=== PATIENT | male | born 1965 | race American Indian/Alaskan Native ===

== ENCOUNTER 2017-12-05 06:55 | Day surgery (SDC) | payer OTHER ==
[~2017-12-05] VITALS: Ht 177.8 cm; Wt 117.9 kg
[~2017-12-05 06:55] MED LIST: ALLEGRA180 MG PO; ASPIRIN EC81 MG PO; GLIPIZIDE5 MG PO; LISINOPRIL2.5 MG PO; LOFIBRA160 MG PO; LORATADINE10 MG PO; METFORMIN HYDRO25 GM MISC; SIMVASTATIN40 MG PO; SINGULAIR10 MG PO
[2017-12-05] MEDS ORDERED: HYDROCODON-ACE1 EA11 PO (09:42)
[2017-12-05] MEDS ORDERED: DICLOFENAC SODI75 MG PO (09:44)
--- NOTE | 2017-12-05 09:44 | NUR ---
12/05/17 0944 Julian Trinidad CBG 272 MG/DL. 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
--- NOTE | 2017-12-05 10:48 | NUR ---
LE 1022: PT ARRIVED FROM PACU, TALKING WITH RN. VITALS AND ASSESSMENT COMPLETED. PT RATES PAIN 5/10, STATES PAIN IS TOLERABLE. PT APPEARS DROWSY, FAMILY IN ROOM STATES PT IS "LOOPY." PUDDING, CRACKERS AND WATER GIVEN. NO FURTHER NEEDS AT THIS TIME. CALL LIGHT IN REACH
--- NOTE | 2017-12-05 11:03 | NUR ---
PT RESTING IN BED, ALERT AND ORIENTED. 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 REALLY HOPES THIS WILL GIVE HIM SOME RELIEF. EXTENDED BLESSING, WILL FOLLOW NEEDED
--- NOTE | 2017-12-05 11:26 | OR ---
[facility] [address], [place] [address] Signed DATE OF OPERATION: 12/05/2017 SURGEON: Jason Bates MD PREOPERATIVE DIAGNOSIS: Medial meniscus tear, left knee. POSTOPERATIVE DIAGNOSIS: Medial meniscus tear, left knee. PROCEDURE PERFORMED: Left knee arthroscopy with partial medial meniscectomy. ANESTHESIA: General. STITCHER UTILITY: ELAINE Peters. Cristal was present for the entire procedure, was critical positioning him, holding and wound closure. BLOOD LOSS: 50 mL. BRIEF HISTORY: Sima is a 52-year-old gentleman with pain in his knee. He had locking and giving out. MRI was consistent with mild osteoarthritis and medial meniscus tear. Risks, benefits, and alternatives were discussed at length. He understands and wished to proceed. DESCRIPTION OF PROCEDURE: Once consent was obtained, he was taken to the operating room. After adequate anesthesia, he was placed on the operating table. All downside pressure points were well padded. Right leg was flexed, abducted, external rotated in well leg manzo. The left was placed in proximal thigh tourniquet, placed in leg manzo. Portal sites utilizing prior incisions were injected with 0.25% Marcaine and epinephrine. The leg was then prepped and draped in a standard sterile fashion. The prior incisions were incised and the scope was placed in the knee. Arthroscopic findings, moderate synovitis was noted throughout the knee. Grade 1 chondromalacia to the patellofemoral joint. Medial and lateral gutters were clear. ACL and PCL were intact. The lateral compartment was intact with no loose bodies. Medial compartment showed a primarily radial tear in the posterior aspect of the meniscus. There was grade 3 chondromalacia Electronically Signed By: JASON BATES MD 12/05/17 1126 PATIENT NAME: SIMA AYALA JR OPERATIVE REPORT DATE OF : 61 REPORT #: [id number] PHYSICIAN: JASON BATES MD PCP: CARLEEN ROSA MD REPORT IS CONFIDENTIAL AND NOT TO BE RELEASED WITHOUT AUTHORIZATION [facility] [address], [place] [address] Signed to the femur and grade 2 to the tibia. The straight biter was used to trim the meniscus tear back to a stable rim and feathered out. This was then smoothed using a shaver and all debris was evacuated. The scope was withdrawn. Portals were closed with 3-0 nylon. Dressed with Adaptic, ABD, and Yevgeniy wrap. He tolerated the procedure well. All sponge, needle, and instrument counts were correct. Jason Bates MD BA/KILO /[id number] Copies: ~ Electronically Signed By: JASON BATES MD 12/05/17 1126 PATIENT NAME: SIMA AYALA JR OPERATIVE REPORT DATE OF : 61 REPORT #: [id number] PHYSICIAN: JASON BATES MD PCP: CARLEEN ROSA MD REPORT IS CONFIDENTIAL AND NOT TO BE RELEASED WITHOUT AUTHORIZATION
--- NOTE | 2017-12-05 13:56 | NUR ---
LE 1110:IN TO CHECK ON PT, MORE WATER GIVEN. TERESSA REQUESTED AND ORDERED. PAIN MEDICATION GIVEN FOR A 7/10 BURNING PAIN ON THE LATERAL ASPECT OF THE L KNEE. FAMILY IN ROOM, CALL LIGHT IN REACH. LE 1120: PT UP TO RESTROOM WITH ASSIST FROM RN AND . PT SHOWS SIGNS OF DISCOMFORT BUT TOLERATES WELL. PT ABLE TO URINATE. PT ADVISED THAT IF PAIN IS CONTROLED AND HE REMAINS WITHOUT NAUSEA HE MAY GO HOME. PT UNDERSTANDS. NO FURTHER NEEDS AT THIS TIME. FAMILY AT BEDSIDE, CALL LIGHT IN REACH. LE 1230: IN TO CHECK ON PT, HE STATES HIS PAIN IS BETTER. DENIES NAUSEA WITH MEAL. PT STATES HE IS READY FOR DISCHARGE. IV DC'D. PT'S TO HELP PT DRESS. ADVISED PT TO MOVE SLOWLY AND CALL FOR HELP IF NEEDED.
== END 2017-12-05 13:10 | disposition home or self-care (01) ==
LOC: DS 06:55
PROVIDERS: Specialist
PROC: 0SBD4ZZ Excision of Left Knee Joint, Percutaneous Endoscopic Approach (ICD-10-PCS; principal; 2017-12-05 08:45)
DX: S83.242A Other tear of medial meniscus, current injury, left knee, initial encounter (principal); M65.862 Other synovitis and tenosynovitis, left lower leg; M22.42 Chondromalacia patellae, left knee; E78.00 Pure hypercholesterolemia, unspecified; E11.9 Type 2 diabetes mellitus without complications; M76.52 Patellar tendinitis, left knee; Z79.899 Other long term (current) drug therapy; Z88.0 Allergy status to penicillin; Z98.890 Other specified postprocedural states; Z79.82 Long term (current) use of aspirin; Z79.84 Long term (current) use of oral hypoglycemic drugs
CPT/HCPCS: 01400; J0330; J0690; J1885; J2250; J2704; J3010; J7120

== ENCOUNTER 2019-07-06 17:51 | Emergency (ER) | payer OTHER, BC ==
[~2019-07-06] VITALS: Ht 177.8 cm; Wt 119.7 kg
--- OUTSIDE RECORDS SUMMARY | ~2019-07-06 | XMS | Clinical Summary ---
Demographics + + + | Address | [address] | | | [place] [address] | + + + | Home Phone | | + + + | Preferred Language | Unknown | + + + | Marital Status | Single | + + + | Yazidism Affiliation | Unknown | + + + | Race | Unknown | + + + | Ethnic Group | Unknown | + + + Author + + + | Author | [facility] | | | and Cesar | + + + | Organization | [facility] | | | and [place] | + + + | Address | Unknown | + + + | Phone | Unavailable | + + + Care Team Providers + +------+ + | Care Technical Coordinator Name | Role | Phone | + +------+ + PCP | Unavailable | + +------+ + Allergies Not on File Medications Not on file Active Problems Not on file Social History + +-------+ +--------+------+ | Tobacco Use | Types | Packs/Day | Years | Date | | | | | Used | | + +-------+ +--------+------+ | Never Assessed | | | | | + +-------+ +--------+------+ + + + | Sex Assigned at | Date Recorded | | | | + + + | Not on file | | + + + + + + + | Job Start Date | Occupation | Industry | + + + + | Not on file | Not on file | Not on file | + + + + + + + + | Travel History | Travel Start | Travel End | + + + + + + | No recent travel history available. | + + Last Filed Vital Signs Not on file Plan of Treatment + + + + + | Health Maintenance | Due Date | Last Done | Comments | + + + + + | Vaccine: | | | | | Dtap/Tdap/Td (1 - | 3 | | | | Tdap) | | | | + + + + + | Vaccine: Zoster (1 | | | | | of 2) | 4 | | | + + + + + | Vaccine: Influenza | | | | | (#1) | 9 | | | + + + + + Results Not on filefrom Last 3 Months Insurance + +--------+ +--------+ +---------+--------+ | Payer | Benefi | Subscriber | Effect | Phone | Address | Type | | | t Plan | ID | jay jay | | | | | | / | | Dates | | | | | | Group | | | | | | + +--------+ +--------+ +---------+--------+ | [facility] | PHP | [id number] | 09/26/19 | [phone] | | PPO | | PLAN | PERSON | | 18-Pre | 5 | | | | | AL | | sent | | | | | | OPEN | | | | | | | | OPTION | | | | | | + +--------+ +--------+ +---------+--------+ | [facility] | IHS | [id number] | | | | Indemn | | SERVICE | YELLOW | | 018-Pr | | | ity | | | HAWK | | esent | | | | + +--------+ +--------+ +---------+--------+ + +--------+ +--------+ + + | Guarantor Name | Accoun | Relation to | Date | Phone | Billing Address | | | t Type | Patient | of | | | | | | | | | | + +--------+ +--------+ + + | Shola Galvan | Person | Self [birth year] | [address] | | | al/Fam | | 1966 | [phone] | [place] [address] | | | kimo | | | 3 (Home) | | + +--------+ +--------+ + +"
--- OUTSIDE RECORDS SUMMARY | ~2019-07-06 | XMS | Clinical Summary ---
Demographics + + + | Address | [address] | | | [place] [address] | + + + | Home Phone | | + + + | Preferred Language | Unknown | + + + | Marital Status | Single | + + + | Scientologist Affiliation | Unknown | + + + | Race | Unknown | + + + | Ethnic Group | Unknown | + + + Author + + + | Author | [facility] | | | and Cesar | + + + | Organization | [facility] | | | and [place] | + + + | Address | Unknown | + + + | Phone | Unavailable | + + + Care Team Providers + +------+ + | Care Reed Dipper Name | Role | Phone | + [...] +---------+--------+ | [facility] | PHP | [id number] | 09/26/19 | [phone] | | PPO | | PLAN | PERSON | | 18-Pre | 5 | | | | | AL | | sent | | | | | | OPEN | | | | | | | | OPTION | | | | | | + +--------+ +--------+ +---------+--------+ | [facility] | IHS | [id number] | | | | Indemn | | [...] | 1966 | [phone] | [place] [address] | | | kimo | | | 3 (Home) | | + +--------+ +--------+ + +"
[~2019-07-06 17:51] MED LIST changes: +DICLOFENAC SODI75 MG PO; +HYDROCODON-ACE1 EA11 PO; +METFORMIN HCL1000 M1 PO; +ULTRAM50 MG PO
--- OUTSIDE RECORDS SUMMARY | 2019-07-06 17:54 | XMS ---
PreManage Notification: SIMA AYALA Security Saw Man Events No recent Security Events currently on file CRITERIA MET - [facility] CARE PROVIDERS Fernando Bates Treatment Current PHONE: Unknown Dhaval has no Care Guidelines for this patient. ETawana VISIT COUNT (12 MO.) 1 ISAEL Souza TOTAL 1 NOTE: Visits indicate total known visits. ED/UCC VISIT TRACKING (12 MO.) 07/06/2019 17:52 ISAEL [facility] [place] TYPE: Emergency COMPLAINT: - BACK/SIDE PAIN INPATIENT VISIT TRACKING (12 MO.) No inpatient visits to display in this time frame [email or web address]
[2019-07-06] MEDS ORDERED: ROBAXIN-750750 MG PO (18:37)
[2019-10-23] MEDS ORDERED: MULTIVITAMIN W1 EACH PO (12:01)
[2019-10-23] MEDS ORDERED: SUDAFED 12 HOU120 MG PO (12:01)
[2019-10-23] MEDS ORDERED: VITAMIN B-12100 MCG PO (12:02)
[2019-10-23] MEDS ORDERED: VITAMIN D35000 UNI2 PO (12:03)
== END 2019-07-06 18:42 | disposition home or self-care (01) ==
LOC: ED 17:51
DX: M54.5 Low back pain (principal); I10 Essential (primary) hypertension; E11.9 Type 2 diabetes mellitus without complications; Z88.0 Allergy status to penicillin; Z79.899 Other long term (current) drug therapy; Z79.82 Long term (current) use of aspirin
CPT/HCPCS: 99283; A9270

== ENCOUNTER 2021-07-04 21:58 | Inpatient (IN) | payer OTHER ==
[~2021-07-04] VITALS: Ht 177.8 cm; Wt 114.3 kg
[~2021-07-04 21:58] MED LIST changes: +ASPIRIN EC325 MG PO; +CELECOXIB200 MG PO; +CRESTOR40 MG NG; +FENOFIBRATE160 MG PO; +GABAPENTIN600 MG PO; -GLIPIZIDE5 MG PO; +GLUCOTROL XL10 MG PO; +JANUMET 50-1,01 EACH PO; -LOFIBRA160 MG PO; +MULTIVITAMIN W1 EACH PO; +OXYCODONE HCL5 MG PO; +PIOGLITAZONE HC30 MG PO; +ROBAXIN-750750 MG PO; +SENNA LAX8.6 MG PO; +SUDOGEST60 MG PO; +TAMSULOSIN HCL0.4 MG PO; +VITAMIN B-121000 MCG PO; +VITAMIN D3125 MC1 PO
--- OUTSIDE RECORDS SUMMARY | 2021-07-04 22:00 | XMS ---
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 Care History Medical/Surgical 07/09/2019 [facility] \T\middot;\T\nbsp; PATIENT- [facility] ELIGIBLE \T\middot;\T\nbsp; PLEASE REFER PATIENT TO [facility] FOR NON EMERGENT MEDICAL NEEDS. \T\middot;\ T\nbsp; [facility] CAN SEE PATIENTS SAME DAY FOR APTS IF PATIENT CALLS FIRST THING IN THE MORNING. E.D. VISIT COUNT (12 MO.) [address] [place] [address] TOTAL 1 NOTE: Visits indicate total known visits. ED/UCC VISIT TRACKING (12 MO.) 07/04/2021 21:59 ISA[facility] Stephens [place] TYPE: Emergency COMPLAINT: - ABD PAIN INPATIENT VISIT TRACKING (12 MO.) No inpatient visits to display in this time frame [email or web address]
--- NOTE | 2021-07-05 02:32 | NUR ---
0130 - pt arrived from ed via stretcher, NGT in place. acompanied by . 0230 - admit assessment completed, awake off and on, answers appropriately NGT L nare to LIWS, draining thick brown colored drainage. lungs clear bilat, on room air. abd w slight distention upper abd, tender, rare bowel tones, stated LBM 10/09, aware of NPO status, oral sponges and swabs at bedside, cooperative. pt does own oral care. IVF bolus from ED completed, and new IVF started as per orders oriented ro hosp routines and room, warm blanket to legs. stated legs get cold easily, maybe undiagnosed neuropathy" as per . Pt has indwewlling BS reader, no accuchecks ordered at this time. pt and aware wifes questions and concerns answered to her satisfaction.
--- NOTE | 2021-07-05 05:02 | NUR ---
Pt admitted early this am from ED. alert and oriented. L nare NGT patent to LIWS, draining thick, brown colored discharge. njo XR was obtained for placement as per ED RN. pt hob elevated, on room air. pt is diabetic and has indwelling BS meter. no BS orders at this time. abd w slight distention, tender, pt says is normal LBM 07/04/21. trace edema generalized, "normal" as per pts . pt voided in [facility] to [facility], no void yet, uses urinal, has slept since admission, no c/o pain at this time. pt has chonic pain. NPO, does own oral care. IVF infusing w/o problems. call light at hands reach
--- NOTE | 2021-07-05 06:19 | NUR ---
VS, DONE. PT STOOD AT BEDSIDE TO USE URINAL. PT BACK IN BED, CALL LIGHT WITHIN REACH. NO FURTHER ASSISTNACE NEEDED AT THIS TIME.
--- NOTE | 2021-07-05 06:55 | NUR ---
RESTING, ALERT, AWAKES EASILY, IVF INFUSING, NGT TO ILWS, DRAINING BROWN THICK DRAINAGE. HOB ELEVATED, DOES OWN MOUTH CARE, HAS VOIDED, NO C/O PAIN AT THIS TIME
--- NOTE | 2021-07-05 07:42 | NUR ---
Shift report recieved from RN Sola, pt resting in bed safely w/ call in reach and eyes closed, RR even and unlabored. NGT in L nare connected to low continuous wall suction.
--- NOTE | 2021-07-05 10:00 | NUR ---
PT RESTING IN BED W/ CALL LIGHT IN REACH, PT ON PHONE W/ , DENIES ANY PAIN, NAUSEA, OR NEEDS AT THIS TIME. IV FLUIDS INFUSING PER PROVIDERS ORDERS. MORNING ASSESMENT COMPLETE, NO SCHEDULED MEDS TO GIVE AT THIS TIME.
--- NOTE | 2021-07-05 12:00 | NUR ---
IV FLUIDS CHANGED FROM D51/2NS+20K TO LR PER PROVIDER ORDERS.
--- NOTE | 2021-07-05 14:00 | NUR ---
pt c/o L lavon and abd pain, IV PRN toradol given per pt request/ provider order. Pt denies any other needs at this time or nausea
--- NOTE | 2021-07-05 16:30 | NUR ---
pt c/o on continuing shoulder pain, IV PRN morphine given per request/order. pt denies any nausea or other needs at this time
--- NOTE | 2021-07-05 18:00 | NUR ---
NGT remains connected to int. wall suction, canister changed as it was full. pt denies pain or nausea.
--- NOTE | 2021-07-05 20:58 | NUR ---
Lnare NGT in place to medium intermitent wall suction, draining thin brown liquid. tolerating large amounts of clear liquids. no emeis. c/o shouldler pain, medicated with Toradol, c/o allergies and runny nose and cough, takes Sudafed/Claritin at home, will notify , . IVF infusing w/o problems. voiding QS, on room air, clear lungs, tender abd, IVAN bowel tones. at bedside.
--- NOTE | 2021-07-06 01:05 | NUR ---
HOB ELEVATED, TOLERATING LIQUIDS WELL, NO EMESIS, LNARE NGT PATENT, DRAINING DARK BROWN DRAINAGE. NO C/O PAIN, IVF INFUSING
--- NOTE | 2021-07-06 05:04 | NUR ---
MEDICATED WITH TORADOL PER C/O ABD PAIN. AWAKES EASILY, NGT PATENT. FLUSHED EASILY, COOPERATIVE.
--- NOTE | 2021-07-06 05:04 | NUR ---
PT HAS SLEPT THIS SHIFT, HOB ELEVATED L NARE NGT PATENT TO MEDIUM INTERMITENT WALL SUCTION, DRAINING DARK BROWN COLORED THICK DRAINAGE. oN CLEAR LIQUIDS, TOLERATING WELL, NO EMESIS. ABD TENDER, MEDICATED WITH TORADOL X2, EFFECTIVE. IVF INFUSING L HAND, W/O PROBLEMS. TURNS AND REPOSITIONS SELF IN BED, VOIDING QS. ALERT AND ORIENTED.
--- NOTE | 2021-07-06 06:01 | NUR ---
pt up to br, had a very large soft and liquid bm, back to bed, tolerated well, continues to c/o runny nosa, will notify am in am, pt has seasonal allergies and takes allergy meds at home
--- NOTE | 2021-07-06 07:27 | NUR ---
PT RESTING SOUNLDY AT TIME OF SHIFT EXCHANGE. AWAKENED FOR XRAY. DENIES NEEDS AT THIS TIME.
--- NOTE | 2021-07-06 07:42 | NUR ---
back from [facility].
--- NOTE | 2021-07-06 08:34 | NUR ---
PATIENT CALLED THAT HIS NG TUBE FELT "COILED" UPON EXAM WITH LIGHT, NO COILING NOTED BUT AUDIBLE SUCKING SOUND WHEN INTERMITTANT SUCTION STARTED. NG TUBE ADVANCED, UNABLE TO AUDIBLY HEAR AIR BOLUS DUE TO HYPERACTIVE BOWEL SOUND. PRIMARY NURSE SHAWN NOTIFIED.
--- NOTE | 2021-07-06 09:07 | NUR ---
SPOKE WITH PATIENT IN ROOM. IS UP IN CHAIR. NGT IN PLACE. PATIENT LIVES WITH LIFE PARTNER BREE. HE WORKS. HE DRIVES. IS INDEPENDENT. DENIES USING DME BUT THE DO HAVE A NEBULIZER AT HOME. DENIES FINACIAL STRAIN TO AFFORD MEDS/FOOD/UTILTIES. USES [facility] FOR PCP AND CHRONIC MEDS. USES [facility] FOR ACUTE RX. PLANS TO DISCHARGE HOME AND FAMILY CAN TRANSPORT. NO QUESTIONS AT THIS TIME.
--- NOTE | 2021-07-06 09:19 | NUR ---
ASSISTED PT TO CHAIR. PT IS COMPLAINING OF PAIN. VS DONE. PT ACCEPTED A LINEN CHANGE. CALL LIGHT WITHIN REACH, NO FURTHER NEEDS AT THIS TIME. PT'S IN ROOM.
--- NOTE | 2021-07-06 09:34 | NUR ---
PT IS UP TO THE CHAIR IS PRESENT IN THE ROOM. NG TUBE APPEARS TO BE PULLED PARTIALLY OUT, SUCTION TURNED OFF FOR NOW. PT REPORTS ALLERGY SYMPTOMS ARE BOTHERING HIM AND HE HAS BEEN SNEEZING, PERHAPS DISPLACED TUBE THAT WAY.
--- NOTE | 2021-07-06 09:40 | NUR ---
NOTIFIED DR BARROS OF DISLODGED NG TUBE WELL PT HAS PASSING OF BOTH LIQUID AND FORMED STOOL. HE REQUESTS NG TUBE BE DC'D FOR NOW. NG TUBE PULLED PT REPORTS RELIEF.
--- NOTE | 2021-07-06 12:00 | NUR ---
PT RESTING IN BED FROM BEING UP IN THE CHAIR MOST OF THE MORNING. HE C/O 5/10 CRAMPING ABDOMINAL PAIN THAT COMES AND GOES. TOO EARLY FOR TORDOL MORPHINE ADMINISTERED AFTER EDUCATION OF SIDE EFFECTS. PT ENCOURAGED TO AMBULATE SEVERAL LAPS AROUND THE MARTIN, HE AGREE HE WILL A LITTLE LATER. JANICE BRITO.
--- NOTE | 2021-07-06 12:42 | NUR ---
pt resting eyes closed appears relaxed and comfortable. left undisturbed
--- NOTE | 2021-07-06 13:45 | NUR ---
PT HAS BEEN CAUTIONED HE IS TO HAVE SIPS OF CLEARS ONLY PER DR BARROS. PT ALSO ENCOURAGED TO AMBULATE THE HALLS SEVERAL TIMES THIS SHIFT HE HAS NOT YET BEEN WILLING.
--- NOTE | 2021-07-06 13:54 | NUR ---
pt up ambulating the cox wiht his .
--- NOTE | 2021-07-06 14:30 | NUR ---
PT IN BED. IN ROOM. PT INSISTS THAT DR TOLD THEM THEY COULD GO BACK ON REGULAR FOOD. THIS JOB PUTTER UP AND TICKET PREPARER WENT AND VERIFIED WITH RN SHAWN. PT IS NOW ON A CLEAR LIQUIDS DIET. VS AND I&O'S DONE. ROOM TIDIED UP. CALL LIGHT WITHIN REACH. NO FURTHER NEEDS AT THIS TIME.
--- NOTE | 2021-07-06 14:35 | NUR ---
PT ALERT, ORIENTED, SITTING IN CHAIR VISITING WITH BREE HIS . PT FEELING BETTER SINCE NGT DC'D. PT WAITING TO VISIT WITH DR BARROS. PT ALSO MENTIONED THAT HE HIS PAIN WAS INCREASING AND WAS UNDER THE IMPRESSION HIS RN WAS CHECKING ON MEDS. GAVE MAGI, WILL FOLLOW WITH ALYSSIA ESCOBAR REGARDING MEDS FOR PT.
--- NOTE | 2021-07-06 14:42 | NUR ---
DR BARROS IN TO SEE PT, PLAN GOING FORWARD DISCUSSED. OKAY TO SL AND DC CPOX ADVANCE DIET TOLERATED. POSSIBLE DC TOMORROW.
--- NOTE | 2021-07-06 17:05 | NUR ---
pt has tolerated a large amount of clear liquids with no increased pain or nausea looks forward to regular meal this evening.
--- NOTE | 2021-07-06 17:59 | NUR ---
PT TOLERATES REGULAR DIET FOR EVENING MEAL NO C/O PAIN OR NAUSEA. RESTING EYES CLOSED AT THIS TIME REMAINS IN THE ROOM
--- NOTE | 2021-07-06 19:10 | NUR ---
REPORT RECEIVED FROM ALYSSIA ESCOBAR. pt RESTING IN BED AWAKE. DRY PRESS OPERATOR IN ROOM FOR VS. NO ADDITIONAL NEEDS.
--- NOTE | 2021-07-06 20:52 | NUR ---
pt RESTING IN BED AWAKE. COMPLAINS OF CHRONIC PAIN MOSTLY IN RIGHT SHOULDER, KNEES, HANDS AND SOME UPPER ABDOMINAL PAIN. PRN AND SCHEDULED MEDICATIONS ADMINISTERED FOR PAIN. SELF CHECK CBG 165, SS INSULIN ADMINISTERED. ASSESSMENT COMPLETE. BOWEL TONES ACTIVE X 4. ABD SOFT, NONTENDER WITH PALPATION. DIET SPRITE PROVIDED. pt DENIES ANY NAUSEA. CALL LIGHT IN REACH.
--- NOTE | 2021-07-06 22:06 | NUR ---
CALL LIGHT ANSWERED. pt COMPLAINS OF 5/10 PAIN IN RIGHT SHOULDER, KNEES, ABD. PRN PAIN MEDICATION ADMINISTERED. SF SNACK PROVIDED. CALL LIGHT IN REACH.
--- NOTE | 2021-07-07 00:45 | NUR ---
pt RESTING IN BED WITH EYES CLOSED. BREATHING EQUAL AND UNLABORED. LIGHTS OFF IN ROOM. CALL LIGHT IN REACH.
--- NOTE | 2021-07-07 03:07 | NUR ---
pt RESTING IN BED WITH EYES CLOSED. BREATHING UNLABORED, RR 16.
--- NOTE | 2021-07-07 06:16 | NUR ---
pt AWAKENS TO VOICE. COMPLAINS OF 6/10 RIGHT SHOULDER, KNEE, HAND PAIN. PRN PAIN MEDICATION ADMINISTERED. pt REFUSES TORADOL STATES "IT DOESN'T DO ANYTHING". ASSESSMENT COMPLETE. SEMI FORMED BM THIS AM. BOWEL TONES ACTIVE X 4, ABD SOFT, NON-TENDER WITH PALPATION. pt DENIES NAUSEA. CALL LIGHT IN REACH. BREAKFAST MENU PROVIDED.
--- NOTE | 2021-07-07 07:24 | NUR ---
PT AWAKE SITTING UP IN BED AT SHIFT EXCHANGE. AGREES HE HAD A GOOD NIGHT. DENIES ABDOMINAL PAIN OR NAUSEA, STATES HE HOPES TO GO HOME TODAY. BREAKFAST HAS BEEN ORDERED, PT DENIES NEEDS OF AT THIS TIME.
--- NOTE | 2021-07-07 07:46 | NUR ---
PT AWAKE AND CONVERSATIONAL. UPDATED WHITE BOARD. PT ACCEPTED WARM CLOTH AND REQUESTED CUP OF COFFEE.
--- NOTE | 2021-07-07 10:44 | NUR ---
pt has omelett, toast, and oatmeal for morning meal denies nausea or pain. says he can feel his abdomen rumbling a bit cramps at times then resolves. shower well tolerated
--- NOTE | 2021-07-07 11:54 | NUR ---
DR BARROS IN TO SEE PT DC ORDERS WRITTEN ALL QUESTIONS ANSWERED
[2021-07-07] MEDS ORDERED: ZYRTEC10 MG PO (12:02)
[2021-07-07] MEDS ORDERED: CELEBREX100 MG PO (12:03)
[2021-07-07] MEDS ORDERED: HYDROCODON-ACE1 EA10 PO (12:03)
--- NOTE | 2021-07-07 12:04 | NUR ---
MED REC COMPLETE
--- NOTE | 2021-07-07 12:38 | DS ---
[facility] [address] [place], [place] [address] Signed ADMISSION DATE: 07/05/2021 DISCHARGE DATE: 07/07/2021 REASON FOR ADMISSION: This 55-year-old [place] man is well known to me from the past. He presented to emergency room with sudden onset of severe mid abdominal pain following ingestion of pizza. He has undergone cholecystectomy in the past, it is noted. He was evaluated in the emergency room by Dr. Siddiqi and the CT scan showed areas of dilated small bowel as well as a markedly dilated stomach and consideration made for distal small-bowel obstruction. He is admitted for that purpose. Past medical history does include hospitalization in 2012 for small bowel obstruction of a similar presentation. It is notable he underwent left testicular resection for malignancy in 2002 as well as retroperitoneal lymphadenectomy. He did not have additional adjuvant therapy. He is admitted for further evaluation and care. Pertinent other medical issues include non-insulin dependent diabetes mellitus, hypertension, dyslipidemia, and obesity. PERTINENT PHYSICAL EXAMINATION: GENERAL: On admission showed an obese [place] man who looks to be in no severe distress. VITAL SIGNS: Temperature 97.7, pulse 84, blood pressure 158/71, O2 saturation 97% on room air. ABDOMEN: Obese, soft, easily palpated. There is no focal mass or tenderness. EXTREMITIES: Showed no clubbing, cyanosis, or edema. Nasogastric tube was in place draining bilious fluid. LABORATORY STUDIES: Showed white count of 9.6, hematocrit 44.9, platelets 365,000. COVID serology negative. Tox report negative. Urinalysis normal. Chem profile otherwise normal. ALT elevated at 59. Lipase normal at 30. HOSPITAL COURSE: He was admitted given nasogastric tube decompression, IV fluids and bowel rest. The following day, he had clinical improvement generally speaking. An abdominal KUB showed improvement of his bowel pattern gas without sign of air-fluid levels. Nasogastric tube was removed and he was begun on a clear liquid diet which he tolerated, which was then advanced to solid diet. By day of discharge and hospital day #3, he was ambulating well, tolerating a solid diet. He had no nausea or vomiting. No abdominal distention or pain. His small bowel obstruction is clinically resolved. FOLLOWUP PLAN: He will return as needed. No specific followup will be made with me at this point. His primary provider remains Rosi Atwood. Electronically Signed By: LILIANA BARROS MD 07/07/21 1238 PATIENT NAME: SIMA AYALA JR DISCHARGE SUMMARY DATE OF : 61 REPORT #: [id number] PHYSICIAN: LILIANA BARROS MD PCP: MARIA INES ATWOOD MD REPORT IS CONFIDENTIAL AND NOT TO BE RELEASED WITHOUT AUTHORIZATION [facility] [address] [place], [place] [address] Signed DISCHARGE MEDICATIONS: 1. Largely to resume his usual medications which include fenofibrate 160 mg p.o. daily for hypercholesterolemia. 2. Glipizide, Glucotrol XL 10 mg p.o. daily for diabetes. 3. Sudogest 20 mg two tablets p.o. b.i.d. as needed for congestion. 4. Vitamin B12 5000 mcg p.o. daily. 5. Vitamin D 5000 units p.o. daily. 6. Singulair 10 mg tablets p.o. at bedtime for allergies. 7. cortisone 30 mg p.o. daily for diabetes. 8. Crestor 20 mg p.o. daily for cholesterol elevation. 9. Metformin/sitagliptin (Janumet) two tablets p.o. daily for diabetes. 10. Aspirin enteric-coated 325 mg p.o. b.i.d. with meals. 11. Celecoxib 200 mg p.o. b.i.d. 12. Oxycodone 5 mg tablet q.4 hours as needed for pain. 13. Gabapentin 600 mg p.o. t.i.d. DISCHARGE DIAGNOSES: 1. Acute recurrent small bowel obstruction with spontaneous resolution with nasogastric decompression, IV fluid administration and bowel rest. 2. Diabetes mellitus, non-insulin dependent. 3. Obesity. 4. History of cholecystectomy. 5. History of left orchiectomy for malignancy with retroperitoneal lymphadenectomy and without adjuvant chemoradiation therapy. MD MED Regan/MODL /[id number] cc: MD Jahaira Nugent MD Electronically Signed By: LILIANA BARROS MD 07/07/21 1238 PATIENT NAME: SIMA AYALA JR DISCHARGE SUMMARY DATE OF : 61 REPORT #: [id number] PHYSICIAN: LILIANA BARROS MD PCP: MARIA INES ATWOOD MD REPORT IS CONFIDENTIAL AND NOT TO BE RELEASED WITHOUT AUTHORIZATION [address] [address] Signed Copies: ANDRZEJ SIDDIQI MD ~ Electronically Signed By: LILIANA BARROS MD 07/07/21 1238 PATIENT NAME: SIMA AYALA JR DISCHARGE SUMMARY DATE OF : 61 REPORT #: [id number] PHYSICIAN: LILIANA BARROS MD PCP: MARIA INES ATWOOD MD REPORT IS CONFIDENTIAL AND NOT TO BE RELEASED WITHOUT AUTHORIZATION
--- NOTE | 2021-07-07 12:38 | HP ---
[facility] [address] [place], [place] [address] Signed ADMISSION DATE: 07/04/2021 REASON FOR ADMISSION: Possible recurrent small bowel obstruction. HISTORY OF PRESENT ILLNESS: This 55-year-old man is known to me from the past. He presented to the emergency room with sudden onset of severe mid abdominal pain. He had eaten one piece of pizza. He did not have symptoms suggestive of biliary colic initially. He was evaluated by Dr. Siddiqi and a CT scan was performed, which showed some areas of dilated small bowel loops as well as a very markedly dilated stomach, considerations made for distal small bowel obstruction. Notably, the patient was hospitalized in [address] Nicolas for a small bowel obstruction. 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 He did not receive adjuvant chemotherapy or radiation therapy and no metastatic disease had been noted. His other medical issues include non-insulin dependent diabetes mellitus, hypertension, and dyslipidemia. His admission currently confirms a prior history of laparoscopic cholecystectomy. He denies any alcohol or drug use. He does not smoke. He is considered to have allergy to penicillin. His current medications include aspirin, celecoxib for right shoulder pain, oxycodone for pain as needed, and gabapentin. The patient has additionally had orthopedic surgery by Dr. Bates in October of 2019 including left total knee arthroplasty. Currently, the patient has nasogastric tube, which is decompressed, fair amount of bilious colored fluid. He does have somewhat of sore throat related to his nasogastric tube. He denies abdominal pain. He denies any shortness of breath. SOCIAL HISTORY: The patient lives in [place] and works for . He has a life partner, Diana Verde. He is a [employer] member locally. PHYSICAL EXAMINATION: GENERAL: An obese man, who looks to be in no severe distress and without systemic toxicity. Electronically Signed By: LILIANA BARROS MD 07/07/21 1238 PATIENT NAME: SIMA AYALA JR HISTORY AND PHYSICAL DATE OF : 61 REPORT #: [id number] PHYSICIAN: LILIANA BARROS MD PCP: MARIA INES DUNNE MD REPORT IS CONFIDENTIAL AND NOT TO BE RELEASED WITHOUT AUTHORIZATION [facility] [address] [place], [place] [address] Signed VITAL SIGNS: Temperature is 97.7, pulse 84, blood pressure 158/71, and O2 saturation is 97% on room air. NECK: Shows no thyromegaly or cervical adenopathy. Trachea is midline. CHEST: Shows normal respiratory excursion. Pulse regular. ABDOMEN: Obese, but soft, easily palpated. There is no focal mass or tenderness. A long midline incision was noted. I detect no evidence of incisional hernia. EXTREMITIES: Show no clubbing, cyanosis, or edema. LABORATORY DATA: His CT scan was reviewed, which dominantly showed a very dilated stomach, thick abdominal wall pannus. There are some dilated loops of small bowel suggestive of bowel obstruction, but without clear transition point to my examination. Clips are noted in the subhepatic space consistent with prior cholecystectomy. Bladder appears normal. I see numerous clips in the retroperitoneum related to prior lymphadenectomy. LABORATORY STUDIES: Show white count of 9.6, hematocrit 44.9, and platelets 365,000. COVID serology is negative. Tox report is negative. Urinalysis is normal. Chem profile is normal, though glucose is elevated at 179. ALT elevated at 59 and lipase normal at 30. ASSESSMENT: The patient may have a small bowel obstruction based on imaging studies. His presentation was that of abdominal pain and his previous hospitalization was somewhat similar, though managed without nasogastric tube. I did recommend a nasogastric tube on the basis of his markedly dilated stomach and drainage of fluid is noted. I believe the patient can be benefitted by lozenges to decrease the discomfort of the nasogastric tube and allowed clear liquids for comfort as the liquids will be promptly drained from a nasogastric tube. His risk factors for bowel obstruction would be retroperitoneal surgery in the past with adhesion formation. He did clear his bowel obstruction in 2012 without operative intervention and that is high probability in his situation currently. If he has not promptly resolved with his symptoms by tomorrow, consideration will be made for a small bowel follow-through and if obstruction noted then surgical remedy offered. In the meantime, we will continue with IV fluids, nasogastric tube decompression, DVT prophylaxis, pain medication and glucose monitoring and treatment as appropriate. Electronically Signed By: LILIANA BARROS MD 07/07/21 1238 PATIENT NAME: SIMA AYALA JR HISTORY AND PHYSICAL DATE OF : 61 REPORT #: [id number] PHYSICIAN: LILIANA BARROS MD PCP: MARIA INES DUNNE MD REPORT IS CONFIDENTIAL AND NOT TO BE RELEASED WITHOUT AUTHORIZATION [address] [address] Signed Liliana Barros MD JM/MODL /[id number] cc: Andrzej Siddiqi MD Copies: ANDRZEJ SIDDIQI MD ~ Electronically Signed By: LILIANA BARROS MD 07/07/21 1238 PATIENT NAME: SIMA AYALA HISTORY AND PHYSICAL DATE OF : 61 REPORT #: [id number] PHYSICIAN: LILIANA BARROS MD PCP: MARIA INES DUNNE MD REPORT IS CONFIDENTIAL AND NOT TO BE RELEASED WITHOUT AUTHORIZATION
--- NOTE | 2021-07-07 12:45 | NUR ---
Spoke with pt and he cont. to plan on dc to home with family today. Denies needs. Family will transport to home.
--- NOTE | 2021-07-07 12:47 | NUR ---
PT SITTING UP IN CHAIR, VISITING WITH FAMILY. PT IS FEELING BETTER TODAY, WAITING FOR DR AND POSSIBLY DC TODAY. GAVE ENCOURAGEMENT AND BLESSING
== END 2021-07-07 12:59 | disposition home or self-care (01) | DRG 390 ==
LOC: ED 21:58 → MS 22:00
PROVIDERS: ADMIT Surgery; ATTEND Surgery
PROC: 0D9670Z Drainage of Stomach with Drainage Device, Via Natural or Artificial Opening (ICD-10-PCS; principal; 2021-07-05)
DX: K56.609 Unspecified intestinal obstruction, unspecified as to partial versus complete obstruction (principal); Z98.890 Other specified postprocedural states; Z85.47 Personal history of malignant neoplasm of testis; E11.9 Type 2 diabetes mellitus without complications; I10 Essential (primary) hypertension; E78.5 Hyperlipidemia, unspecified; Z20.822 Contact with and (suspected) exposure to COVID-19; Z90.49 Acquired absence of other specified parts of digestive tract; Z87.891 Personal history of nicotine dependence; Z88.0 Allergy status to penicillin; Z88.1 Allergy status to other antibiotic agents; Z79.82 Long term (current) use of aspirin; Z79.899 Other long term (current) drug therapy
CPT/HCPCS: 43752; 74018; 74177; 80053; 81001; 83690; 83735; 85025; 99285-25; A9270; C9803; G0378; J1170; J1815; J1885; J2270; J2405; J3480; J7030; J7121; Q9967; U0003

== ENCOUNTER 2022-08-15 15:50 | Emergency (ER) | payer OTHER ==
[~2022-08-15] VITALS: Ht 177.8 cm; Wt 120.4 kg
[~2022-08-15 15:50] MED LIST changes: +CELEBREX100 MG PO; +HYDROCODON-ACE1 EA10 PO; +ZYRTEC10 MG PO
--- OUTSIDE RECORDS SUMMARY | 2022-08-15 15:52 | XMS ---
PreManage Notification: SIMA AYALA Security [employer] Events No recent Security Events currently on file CRITERIA MET - [facility] CARE PROVIDERS [facility] 07/09/2019-[facility] PHONE: [phone] Dhaval has no Care Guidelines for this patient. Care History Medical/Surgical 07/09/2019 [facility] \T\middot;\T\nbsp; PATIENT- [facility] ELIGIBLE \T\middot;\T\nbsp; PLEASE REFER PATIENT TO [facility] FOR NON EMERGENT MEDICAL NEEDS. \T\middot;\ T\nbsp; [facility] CAN SEE PATIENTS SAME DAY FOR APTS IF PATIENT CALLS FIRST THING IN THE MORNING. E.D. VISIT COUNT (12 MO.) [address] [place] [address] TOTAL 1 NOTE: Visits indicate total known visits. ED/UCC VISIT TRACKING (12 MO.) 08/15/2022 15:51 [facility] [place] TYPE: Emergency COMPLAINT: - FOREIGN BODY INPATIENT VISIT TRACKING (12 MO.) No inpatient visits to display in this time frame [email or web address]
== END 2022-08-15 16:53 | disposition home or self-care (01) ==
LOC: ED 15:50
PROC: 08C9XZZ Extirpation of Matter from Left Cornea, External Approach (ICD-10-PCS; principal; 2022-08-15)
DX: T15.02XA Foreign body in cornea, left eye, initial encounter (principal); I10 Essential (primary) hypertension; E11.9 Type 2 diabetes mellitus without complications; Z87.891 Personal history of nicotine dependence; Z88.0 Allergy status to penicillin; Z79.899 Other long term (current) drug therapy; Z79.84 Long term (current) use of oral hypoglycemic drugs; W45.8XXA Other foreign body or object entering through skin, initial encounter
CPT/HCPCS: 65222; 99283-25

== ENCOUNTER 2025-07-21 12:12 | Emergency (ER) | payer OTHER ==
[~2025-07-21] VITALS: Ht 177.8 cm; Wt 110.3 kg
[2025-07-21] MEDS ORDERED: ACETAMINOPHEN 500 MG TAB PO ONE (14:15)
[2025-07-21 14:56] VITALS: BP 125/77
== END 2025-07-21 14:56 | disposition home or self-care (01) ==
LOC: ED 12:12
DX: M25.561 Pain in right knee (principal); I10 Essential (primary) hypertension; E11.9 Type 2 diabetes mellitus without complications; Z87.891 Personal history of nicotine dependence; Z88.0 Allergy status to penicillin; Z88.1 Allergy status to other antibiotic agents; Z79.899 Other long term (current) drug therapy
CPT/HCPCS: 73560; 99283; A9270

== ENCOUNTER 2025-08-27 05:43 | Day surgery (SDC) | payer OTHER ==
[~2025-08-27] VITALS: Ht 177.8 cm; Wt 108.0 kg
[~2025-08-27 05:43] MED LIST changes: +LACTATED RINGER'S 1,000 ML IV SCH; +TRULICITY4.5 MG/0.5 SUB-Q
[2025-08-27 06:26] VITALS: BP 119/76
[2025-08-27 06:29] LABS: BASOPHILS 0.9 % (0.2-1.2); EOSINOPHILS 2.8 % (0.8-7.0); LYMPHOCYTES 32.6 % (21.8-53.1); MCH 28.2 PG (25.7-32.2); MCHC 33.0 g/dL (32.3-36.5); MCV 85.4 fL (79.0-92.2); MONOCYTES 7.3 % (5.3-12.2); NEUTROPHILS 55.8 % (34.0-67.9); RBC 4.72 M/uL (4.63-6.08)
[2025-08-27] MEDS ORDERED: HYDROCODON-ACE1 EAC8 PO (06:30)
[2025-08-27 06:50] LABS: ALT (SGPT) 49.0 U/L (14-59); AST (SGOT) 19.0 U/L (15-37); GLOMERULAR FILTRATION RATE,EST 88.0 mL/min (>60); PROTEIN, TOTAL 7.4 g/dL (6.4-8.2); UREA NITROGEN 14.0 mg/dL (7-18)
[2025-08-27] MEDS ORDERED: LIDOCAINE HCL 1% 5 ML SDV INJ ONE (07:00)
[2025-08-27] MEDS ORDERED: CEFAZOLIN SODIUM 2 GM in SODIUM CHLORIDE 0.9% 100 ML IV SCH (07:00)
[2025-08-27] MEDS ORDERED: IBLOOD GLUCOSE TEST STRIP 1 EA TEST VI PRN (07:00)
[2025-08-27] MEDS ORDERED: LIDOCAINE HCL 2% 5 ML SDV ONE ×2 (07:13→08:41)
[2025-08-27] MEDS ORDERED: fentaNYL citrate 100 MCG/2 ML VIAL ONE ×2 (07:13→08:21)
[2025-08-27] MEDS ORDERED: MIDAZOLAM HCL 2 MG/2 ML VIAL ONE (07:13)
[2025-08-27] MEDS ORDERED: ROCURONIUM BROMIDE 50 MG/5 ML SYR ONE (07:33)
[2025-08-27] MEDS ORDERED: SUGAMMADEX SODIUM 200 MG/2 ML ML ONE (07:33)
[2025-08-27] MEDS ORDERED: KETOROLAC TROMETHAMINE 30 MG/ML VIAL ONE (07:44)
[2025-08-27] MEDS ORDERED: SODIUM CHLORIDE 0.9% 60 ML IV ONE (07:44)
[2025-08-27] MEDS ORDERED: Ropivacaine HCl 0.5% 30 ML VIAL ONE (07:44)
[2025-08-27] MEDS ORDERED: ACETAMINOPHEN 1,000 MG/100 ML VIAL ONE (07:50)
[2025-08-27] MEDS ORDERED: LACTATED RINGER'S 1,000 ML IV ONE (08:09)
--- NOTE | 2025-08-27 08:58 | NUR ---
08/27/25 0858 Jimena Garcia 0849-PATIENT ARRIVED TO PACU ON 6L MASK RR EVEN 94% ORAL AIRWAY IN PLACE NONAROUSABLE. SR HR 70'S. IVF INFUSING. DRESSING INTACT WITH ABDOMINAL BINDER IN PLACE. 0853-GLUCOSE CHECKED 208.
[2025-08-27] MEDS ORDERED: HYDROCODONE/ACETA 7.5/325 TAB PO PRN (09:15)
[2025-08-27 09:43] VITALS: BP 106/74
--- NOTE | 2025-08-27 09:45 | NUR ---
PT TO DS ROOM FROM PACU VIA STRETCHER. PT IS DROWSY AND RESTING W/EYES CLOSED. PT AWAKENS TO VERBAL STIMULI WITHOUT DIFFICULTY. PT REPORTS NO PAIN OR NAUSEA AT THIS TIME. DRESSING VISUALIZED W/AME CADE. REPORT RECEIVED BY AME CADE W/PT AT BEDSIDE. PT ON 2L OF O2 VIA NC, RESPIRATIONS EVEN AND UNLABORED, CPOX IN PLACE W/O2 >90%. CALL LIGHT WITHIN REACH.
[2025-08-27 10:50] VITALS: BP 114/73
--- NOTE | 2025-08-27 10:52 | NUR ---
PT CONTINUES TO REST W/EYES CLOSE AND RESPONDS TO VERBAL STIMULI. NO ACUTE CHANGES FROM PREVIOUS ASSESSMENT. PT REMAINS AT BEDSIDE. CALL LIGHT WITHIN REACH.
[2025-08-27 11:43] VITALS: BP 119/72
--- NOTE | 2025-08-27 11:51 | NUR ---
IN PT ROOM FOR VS AND ASSESSMENT. PT REPORTS NO PAIN AT THIS TIME. NO ACUTE CHANGES FROM PREVIOUS ASSESSMENT. PT REMAINS DROWSY BUT AWAKES TO TAKE SIPS OF WATER AND EAT JELLO/CRACKERS. PT TOLERATING WELL WITHOUT DIFFICULTY SWALLOWING. PT TITRATED TO RA, O2 REMAINS >90% VIA CPOX. PT AT BEDSIDE. CALL LIGHT WITHIN REACH. PT STATES NO FURTHER NEEDS OR QUESTIONS AT THIS TIME.
--- NOTE | 2025-08-27 12:10 | NUR ---
IN PT ROOM FOR ROUNDING. PT TOLERATED ALL OF JELLO AND CRACKERS WITHOUT DIFFICULTY. PT REMAINS GROGGY, EYES OPEN AND CLOSED ON AND OFF. PT STATES HE WOULD LIKE TO TRY TO URINE VOID AT THIS TIME. THIS RN 1PA TO RESTROOM. GAIT SLIGHTLY UNSTEADY. PT URINE VOIDS 375 YELLOW/CLEAR URINE AT THIS TIME. PT BACK TO ROOM W/THIS RN STANDBY ASSIST, PT GAIT MORE STEADY AND PT STATES HE IS STILL TIRED. PT REMAINS GROGGY LAYING IN BED AND EYES OPEN AND CLOSED PERIODICALLY AT THIS TIME. PT REQUESTS PT RECEIVE PRN PAIN PILL BEFORE DISCHARGE, LET PT KNOW PT HAS SLEEP APNEA AND CAN BARELY STAY AWAKE, AND HAS HAD SEVERAL PAIN MEDICATIONS ON BOARD, ONLY OPTION LEFT IS OPIOID THAT CAN INHIBIT RESPIRATORY DRIVE, PT AND PT STATE VERBAL UNDERSTANDING. ICE PACK PROVIDED. CALL LIGHT WITHIN REACH.
--- NOTE | 2025-08-27 12:40 | NUR ---
IN PT ROOM FOR DC EDUCATION TO PT AND PT . PT AND PT STATE VERBAL UNDERSTANDING AND NO FURTHER QUESTIONS AT THIS TIME. ICE PACK PROVIDED. PT OFF OF UNIT BY HARSHIL VELAZQUEZ. ALL BELONGINGS IN PT POSSESSION AT THIS TIME.
[2025-08-27 12:43] VITALS: BP 136/83
[2025-08-27 14:04] VITALS: BP 136/83
[2025-08-27] MEDS ORDERED: SEVOFLURANE 250 ML BTL INH ONE (16:50)
--- NOTE | 2025-08-28 08:33 | OR ---
[facility] [address] [place], [place] [address] Signed DATE OF OPERATION: 08/27/2025 SURGEON: Ge Hernandez DO PREOPERATIVE DIAGNOSIS: Incarcerated incisional hernia. POSTOPERATIVE DIAGNOSIS: Incarcerated incisional hernia. PROCEDURE PERFORMED: Repair of incarcerated incisional hernia. ANESTHESIA: General. ESTIMATED BLOOD LOSS: Minimal. DRAINS: None. COMPLICATIONS: None. DESCRIPTION OF PROCEDURE: The patient was brought into the operating room and placed in supine position. After induction of general endotracheal anesthesia, the abdomen was then sterilely shaved, prepped, and draped in usual fashion. The linear subumbilical incision was incised with a scalpel. Dissection continued down through the layers of subcutaneous tissue. Bleeding points were controlled with electrocautery. Upon encountering, the contents of the incarcerated hernia were then mobilized from the umbilicus to the anterior fascia in the region of the previous incision that was done. Contents were further mobilized and skeletonized. Sac was entered sharply, and contents were excised in its entirety and passed off the field for pathologic review. The fascial defect was approximately 3 to 4 cm in diameter, and the margins of the fascia were freshened. The fascia was then closed with interrupted [id number] of #1 Ethibond suture. This was completed from apex to apex. The region was then thoroughly irrigated and dried. The umbilicus was then tacked down to the anterior fascia with interrupted 2-0 Vicryl. Subcutaneous incision was then closed with a 3-0 Vicryl, and the skin was closed with the clips. Electronically Signed By: GE HERNANDEZ DO 08/28/25 0833 PATIENT NAME: SIMA AYALA JR OPERATIVE REPORT DATE OF : 61 REPORT #: [id number] PHYSICIAN: GE HERNANDEZ DO PCP: MARISA MCCOLLUM REPORT IS CONFIDENTIAL AND NOT TO BE RELEASED WITHOUT AUTHORIZATION [facility] [address] [facility] [place], [place] [address] Signed Sterile dressing was applied. The patient tolerated this procedure well, taken to the recovery room in satisfactory condition. DO MEHRAN Lawson/MODL /[id number] Copies: ~ Electronically Signed By: GE HERNANDEZ DO 08/28/25 0833 PATIENT NAME: SIMA AYALA OPERATIVE REPORT DATE OF : 61 REPORT #: [id number] PHYSICIAN: GE HERNANDEZ DO PCP: MARISA MCCOLLUM REPORT IS CONFIDENTIAL AND NOT TO BE RELEASED WITHOUT AUTHORIZATION
--- NOTE | 2025-08-29 11:04 | PATH ---
[facility] [address] [place], [place] [address] Signed SPECIMEN(S): A INCARCERATED VENTRAL HERNIA SAC SPECIMEN SOURCE: A. INCARCERATED VENTRAL HERNIA SAC CLINICAL HISTORY: Incarcerated hernia FINAL PATHOLOGIC DIAGNOSIS: Ventral hernia sac: - Benign fibrovascular and adipose tissue; consistent with hernia sac BB MICROSCOPIC EXAMINATION: Histologic sections of all submitted blocks are examined by light microscopy. These findings, together with the gross examination, support the pathologic diagnosis. GROSS DESCRIPTION: The specimen, labeled and designated "Mandy, ventral hernia sac," is received in formalin and consists of fibroadipose and fibromembranous tissue fragments that measure in aggregate 11.0 x 5.5 x 3.3 cm. Sectioning through the specimen to reveal yellow to pink-stewart fibroadipose and membranous tissue. No abnormalities are grossly identified. [employer] sections are submitted in (A1). JS (under the direct supervision of a pathologist) The Gross Description was prepared using a voice recognition system. The report was reviewed for accuracy; however, sound-alike word errors, addition and/or deletions may occur. If there is any question about this report, please contact Client Services. ADDITIONAL NOTES: Immunohistochemical and/or in situ hybridization studies if performed in this case included appropriate positive controls that reacted as expected. This test was developed and its performance characteristics determined by [facility]. It has not been cleared or approved by the U.S. Food and Drug Administration. The FDA has determined that such clearance or approval is not necessary. This test is used for clinical purposes. It should not be regarded as investigational or for research. [facility] is certified under the Clinical Laboratory Improvement PATIENT NAME: SIMA AYALA JR PATHOLOGY DATE OF : 61 REPORT #: [id number] PHYSICIAN: [facility] PCP: MARISA MCCOLLUM REPORT IS CONFIDENTIAL AND NOT TO BE RELEASED WITHOUT AUTHORIZATION [facility] [address] [facility] [place] [address] Signed Amendments of 1988 (CLIA) as qualified to perform high complexity clinical laboratory testing. PERFORMING LABORATORY: Technical component was performed by [facility], [address] [place] [address] (CLIA# [id number]). Professional interpretation was performed by [facility] [place] [address] (CLIA#: [id number]). Diagnostician: Angel Melchor MD Pathologist Electronically Signed 08/29/2025 Copies: ~ PATIENT NAME: SIMA AYALA JR PATHOLOGY DATE OF : 61 REPORT #: [id number] PHYSICIAN: [facility] PCP: MARISA MCCOLLUM REPORT IS CONFIDENTIAL AND NOT TO BE RELEASED WITHOUT AUTHORIZATION
--- NOTE | 2025-08-29 22:11 | EKG ---
[facility] [address] [facility] [place] [address] Signed Normal sinus rhythm Normal ECG When compared with ECG of 30-NOV-2017 08:26, No significant change was found Confirmed by Cornelius Reyes MD () on 08/29/2025 10:11:22 PM Electronically Signed By: CORNELIUS REYES MD 08/29/252210 PATIENT NAME: JAMIESIMA JR Electrocardiogram DATE OF : 61 PHYSICIAN: CORNELIUS REYES MD REPORT #: [id number] REPORT IS CONFIDENTIAL AND NOT TO BE RELEASED WITHOUT AUTHORIZATION
== END 2025-08-27 12:55 | disposition home or self-care (01) ==
LOC: OPS 05:43 → DS 05:43 → OPS 07:00 → DS 08:40 → OPS 12:55
PROVIDERS: Nurse Anesthetist, Certified Registered; ATTEND Surgery
PROC: 0WUF0JZ Supplement Abdominal Wall with Synthetic Substitute, Open Approach (ICD-10-PCS; principal; 2025-08-27 07:00)
DX: K43.0 Incisional hernia with obstruction, without gangrene (principal); G89.18 Other acute postprocedural pain; E11.9 Type 2 diabetes mellitus without complications; I10 Essential (primary) hypertension; Z88.1 Allergy status to other antibiotic agents; Z88.8 Allergy status to other drugs, medicaments and biological substances; Z79.84 Long term (current) use of oral hypoglycemic drugs
CPT/HCPCS: 00830; 36415; 80053; 85025; 88302; 93005; 93010; J0131; J0688; J1885; J2003; J2250; J2405; J2704; J2795; J3010; J3490; J7121

== ENCOUNTER 2025-09-08 15:53 | Emergency (ER) | payer OTHER ==
[~2025-09-08] VITALS: Ht 177.8 cm; Wt 108.0 kg
--- OUTSIDE RECORDS SUMMARY | ~2025-09-08 | XMS | Continuity of Care Document ---
Demographics + + + | Address | [address] | | | [place] [address] | + + + | Preferred Language | Unknown | + + + | Marital Status | | + + + | Pentecostalism Affiliation | Unknown | + + + | Race | or | + + + | Ethnic Group | Not or | + + + Author + + + | Author | [facility] | + + + | Organization | [facility] | + + + | Address | [address] | | | [place] [address] | + + + | Phone | | + + + Care Team Providers + + + + | Care Instructional Writer Name | Role | Phone | + + + + Unavailable | Unavailable | + + + + Unavailable | Unavailable | + + + + Allergies and Intolerances + + + + + + | date | description | facility | reaction | severity | + + + + + + | 2025-08-26 | Amoxicillin | [facility] - | Upset stomach | Mild | | 00:00 | [facility] | | | + + + + + + | 2025-08-26 | Amoxicillin | [facility] - | Upset stomach | Mild | | 00:00 | | [facility] | | | + + + + + + | 2025-08-26 | Amoxicillin | [facility] - | Upset stomach | Mild | | 00:00 | | [facility] | | | + + + + + + | 2025-07-21 | Penicillin | [facility] - | (no reaction) | (no severity) | | 00:00 | | [facility] | | | + + + + + + | 2025-07-21 | Penicillin | [facility] - | (no reaction) | (no severity) | | 00:00 | | [facility] | | | + + + + + + | 2025-07-21 | Penicillin | [facility] - | (no reaction) | (no severity) | | 00:00 | | [facility] | | | + + + + + + | 2025-08-26 | UNK | [facility] - | (no reaction) | (no severity) | | 00:00 | | [facility] | | | | | | [facility] | | | + + + + + + Encounters No information. Functional Status No information. Immunizations + + + + | date | description | facility | + + + + | (no date) | Influenza, Injectable, | [facility] | | | Quadrivalent, Preservative | [facility] | + + + + Medications + + + + | date | description | facility | + + + + | (no date) | PSEUDOEPHEDRINE HCL | [facility] | | | | [facility] | + + + + | (no date) | MONTELUKAST SODIUM | [facility] | | | | [facility] | + + + + | (no date) | Dulaglutide | [facility] | | | | [facility] | + + + + | (no date) | Cholecalciferol (Vitamin | [facility] | | | D3) | [facility] | + + + + | (no date) | CYANOCOBALAMIN (VITAMIN | [facility] | | | B-12) | [facility] | + + + + | (no date) | LORATADINE | [facility] | | | | [facility] | + + + + | (no date) | PIOGLITAZONE HCL | [facility] | | | | [facility] | + + + + | (no date) | FENOFIBRATE | [facility] | | | | [facility] | + + + + | (no date) | HYDROCODONE | [facility] | | | BIT/ACETAMINOPHEN | [facility] | + + + + | (no date) | ROSUVASTATIN CALCIUM | [facility] | | | | [facility] | + + + + | (no date) | SITAGLIPTIN PHOS/METFORMIN | [facility] | | | HCL | [facility] | + + + + | (no date) | glipiZIDE | [facility] | | | | [facility] | + + + + Problems + + + + | date | description | facility | + + + + | 2025-07-21 00:00 | Right knee pain | [facility] | | | | [facility] | + + + + Procedures + + + + | date | description | facility | + + + + | 2025-08-27 00:00 | Repair of ventral hernia | [facility] | | | with mesh | [facility] | + + + + | 2025-08-27 00:00 | Repair of ventral hernia | [facility] | | | with mesh | [facility] | + + + + Results/Labs +--------+--------+ +---------+--------+---------+ | test | date | facility | value | unit | notes | +--------+--------+ +---------+--------+---------+ + + | Result panel 1 | + + + + + +--------+ + + | WBC # Bld | 2025-08-27 | | 6.81 | (missing) | (missing) | | Auto | 06:23:08 | [facility] | | | | + + + +--------+ + + + + | Result panel 2 | + + + + + +--------+ + + | Lymphocytes | 2025-08-27 | | 32.6 | (missing) | (missing) | | NFr Bld | 06:23:08 | [facility] | | | | | Auto | [facility] | | | | + + + +--------+ + + + + | Result panel 3 | + + + + + +-------+ + + | Monocytes | 2025-08-27 | | 7.3 | (missing) | (missing) | | NFr Bld Auto | 06:23:08 | [facility] | | | | + + + +-------+ + + + + | Result panel 4 | + + + + + +-------+ + + | Eosinophil | 2025-08-27 | | 2.8 | (missing) | (missing) | | NFr Bld Auto | 06:23:08 | [facility] | | | | + + + +-------+ + + + + | Result panel 5 | + + + + + +-------+ + + | Basophils | 2025-08-27 | | 0.9 | (missing) | (missing) | | NFr Bld Auto | 06:23:08 | [facility] | | | | + + + +-------+ + + + + | Result panel 6 | + + + + + +-------+---------+ + | Glucose | 2025-08-27 | | 310 | mg/dL | (missing) | | SerPl-mCnc | 06:23:08 | [facility] | | | | + + + +-------+---------+ + + + | Result panel 7 | + + + + + +------+---------+ + | BUN | 2025-08-27 | | 14 | mg/dL | (missing) | | SerPl-Johnny | 06:23:08 | [facility] | | | | + + + +------+---------+ + + + | Result panel 8 | + + + + + +--------+---------+ + | Creat | 2025-08-27 | | 0.98 | mg/dL | (missing) | | SerPl-mCnc | 06:23:08 | [facility] | | | | + + + +--------+---------+ + + + | Result panel 9 | + + + + + +------+ + + | eGFRcr | 2025-08-27 | | 88 | (missing) | (missing) | | SerPlBld | 06:23:08 | [facility] | | | | | CKD-EPI 2020 | [facility] | | | | + + + +------+ + + + + | Result panel 10 | + + + + + +---------+ + + | BUN/Creat | 2025-08-27 | | 14.28 | (missing) | (missing) | | SerPl | :23:08 | [facility] | | | | + + + +---------+ + + + + | Result panel 11 | + + + + + +--------+ + + | RBC # Bld | 2025-08-27 | | 4.72 | (missing) | (missing) | | Auto | :23:08 | [facility] | | | | + + + +--------+ + + + + | Result panel 12 | + + + + + +-------+ + + | Sodium | 2025-08-27 | | 140 | (missing) | (missing) | | SerPl-sCnc | 06::08 | [facility] | | | | + + + +-------+ + + + + | Result panel 13 | + + + + + +-------+ + + | Potassium | 2025-08-27 | | 4.1 | (missing) | (missing) | | SerPl-sCnc | 06:23:08 | [facility] | | | | + + + +-------+ + + + + | Result panel 14 | + + + + + +-------+ + + | Chloride | 2025-08-27 | | 104 | (missing) | (missing) | | SerPl-sCnc | 06:23:08 | [facility] | | | | + + + +-------+ + + + + | Result panel 15 | + + + + + +------+ + + | CO2 | 2025-08-27 | | 26 | (missing) | (missing) | | SerPl-sCnc | 06:23:08 | [facility] | | | | + + + +------+ + + + + | Result panel 16 | + + + + + +--------+ + + | Anion Gap | 2025-08-27 | | 14.1 | (missing) | (missing) | | SerPl | 06:23:08 | [facility] | | | | | Calculated.4 | [facility] | | | | + + + +--------+ + + + + | Result panel 17 | + + + + + +-------+---------+ + | Calcium | 2025-08-27 | | 8.9 | mg/dL | (missing) | | SerPl-mCnc | 06:23:08 | [facility] | | | | + + + +-------+---------+ + + + | Result panel 18 | + + + + + +-------+ + + | Prot | 2025-08-27 | | 7.4 | (missing) | (missing) | | SerPl-mCnc | 06:23:08 | [facility] | | | | + + + +-------+ + + + + | Result panel 19 | + + + + + +-------+ + + | Albumin | 2025-08-27 | | 4.0 | (missing) | (missing) | | SerPl-mCnc | 06:23:08 | [facility] | | | | + + + +-------+ + + + + | Result panel 20 | + + + + + +-------+ + + | Globulin | 2025-08-27 | | 3.4 | (missing) | (missing) | | Ser-mCnc | 06:23:08 | [facility] | | | | + + + +-------+ + + + + | Result panel 21 | + + + + + +--------+ + + | | 2025-08-27 | | 1.18 | (missing) | (missing) | | Albumin/Glob | 06:23:08 | [facility] | | | | | SerPl | [facility] | | | | + + + +--------+ + + + + | Result panel 22 | + + + + + +--------+ + + | Hgb | 2025-08-27 | | 13.3 | (missing) | (missing) | | Bld-mCnc | 06:23:08 | [facility] | | | | + + + +--------+ + + + + | Result panel 23 | + + + + + +-------+---------+ + | Bilirub | 2025-08-27 | | 0.3 | mg/dL | (missing) | | SerPl-mCnc | :23:08 | [facility] | | | | + + + +-------+---------+ + + + | Result panel 24 | + + + + + +------+ + + | AST | 2025-08-27 | | 19 | (missing) | (missing) | | SerPl-cCnc | :23:08 | [facility] | | | | + + + +------+ + + + + | Result panel 25 | + + + + + +------+ + + | ALT | 2025-08-27 | | 49 | (missing) | (missing) | | Ser[facility] | 06:23:08 | [facility] | | | | + + + +------+ + + + + | Result panel 26 | + + + + + +------+ + + | ALP | 2025-08-27 | | 89 | (missing) | (missing) | | SerPl-cCnc | 06:23:08 | [facility] | | | | + + + +------+ + + + + | Result panel 27 | + + + + + +--------+ + + | Hct VFr.DF | 2025-08-27 | | 40.3 | (missing) | (missing) | | Bld Auto | 06:23:08 | [facility] | | | | + + + +--------+ + + + + | Result panel 28 | + + + + + +--------+ + + | RBC Auto | 2025-08-27 | | 85.4 | (missing) | (missing) | | | 06:23:08 | [facility] | | | | + + + +--------+ + + + + | Result panel 29 | + + + + + +--------+ + + | MCH RBC Qn | 2025-08-27 | | 28.2 | (missing) | (missing) | | Auto | :23:08 | [facility] | | | | + + + +--------+ + + + + | Result panel 30 | + + + + + +--------+ + + | MCHC RBC | 2025-08-27 | | 33.0 | (missing) | (missing) | | Auto-EntMCnc | 06:23:08 | [facility] | | | | + + + +--------+ + + + + | Result panel 31 | + + + + + +-------+ + + | Platelet # | 2025-08-27 | | 345 | (missing) | (missing) | | Bld Auto | 06:23:08 | [facility] | | | | + + + +-------+ + + + + | Result panel 32 | + + + + + +--------+ + + | Neutrophils | 2025-08-27 | | 55.8 | (missing) | (missing) | | NFr Bld | 06:23:08 | [facility] | | | | | Auto | [facility] | | | | + + + +--------+ + + + + | Result panel 33 | + + + + + +-------+ + + | Glucose | 2025-08-27 | | 208 | (missing) | (missing) | | Bld-kellie | 08:56:08 | [facility] | | | | + + + +-------+ + + Social History +--------+ + + | date | description | facility | +--------+ + + Vital Signs + + + +---------+ | date | measurement | value | units | + + + +---------+ | 2025-08-19 00:00 | BMI | 34.2 | kg/m2 | + + + +---------+ | 2025-08-19 00:00 | height_metric | 177.8 | cm | + + + +---------+ | 2025-08-19 00:00 | height_standard | 70 | in | + + + +---------+ | 2025-08-19 00:00 | weight_metric | 108 | kg | + + + +---------+ | 2025-08-19 00:00 | weight_standard | 238.100 | lb | + + + +---------+ | 2025-08-27 00:00 | BP_diastolic | 72 | mmHg | + + + +---------+ | 2025-08-27 00:00 | BP_systolic | 119 | mmHg | + + + +---------+ | 2025-08-27 00:00 | heart_rate | 67 | /min | + + + +---------+ | 2025-08-27 00:00 | o2_saturation | 99 | % | + + + +---------+ | 2025-08-27 00:00 | respiration_rate | 16 | /min | + + + +---------+ | 2025-08-27 00:00 | | 98.1 | F | | | temperature_standar | | | | | d | | | + + + +---------+"
[~2025-09-08 15:53] MED LIST changes: +HYDROCODON-ACE1 EAC8 PO; -LACTATED RINGER'S 1,000 ML IV SCH
[2025-09-08 17:22] VITALS: BP 145/76
== END 2025-09-08 17:22 | disposition home or self-care (01) ==
LOC: ED 15:53
DX: T81.31XA Disruption of external operation (surgical) wound, not elsewhere classified, initial encounter (principal); E11.9 Type 2 diabetes mellitus without complications; I10 Essential (primary) hypertension; Z79.899 Other long term (current) drug therapy; Z88.0 Allergy status to penicillin; Z88.8 Allergy status to other drugs, medicaments and biological substances; Z87.891 Personal history of nicotine dependence
CPT/HCPCS: 80053; 85025; 99283